=== PATIENT | female | born 1980 | race American Indian/Alaskan Native ===

== ENCOUNTER 2017-06-24 12:15 | Emergency (ER) | payer SELFPAY ==
[2017-06-24] MEDS ORDERED: PROVENTIL IH ONE (12:27)
[2017-06-24] MEDS ORDERED: ATROVENT IH ONE (12:27)
[2017-06-24 13:14] VITALS: BP 148/86
[2017-06-24 13:26] LABS: Basophils % (Auto) 0.3 % (0.0-1.8); Eosinophils % (Auto) 2.5 % (0.0-4.3); Hematocrit 41.2 % (30.3-42.9); Hemoglobin 13.4 gm/dl (10.1-14.3); Mean Corpuscular HGB Conc 33 % (30-34); Mean Corpuscular Hemoglobin 31 pg (28-32); Mean Corpuscular Volume 94 fl (79-97); Platelet Count 328 K/mm3 (140-440); Red Blood Count 4.38 M/mm3 (3.65-5.03); Red Cell Distribution Width 14.6 % (13.2-15.2); White Blood Count 14.4 K/mm3 (4.5-11.0)
--- NOTE | 2017-06-24 13:35 | XRay Report ---
AP CHEST :06/24/17 12:15:00 CLINICAL: Shortness of breath. COMPARISON:None. FINDINGS: Normal heart and pulmonary vasculature. The lungs are normally expanded and clear. Mild scoliosis. No tubes or lines. IMPRESSION: No acute cardiopulmonary process.
[2017-06-24] MEDS ORDERED: MAGNESIUM SULFATE 2GM/50ML 2 GM/50 ML BAG IV ONE (13:40)
[2017-06-24 13:42] LABS: Anion Gap 16 mmol/L; Blood Urea Nitrogen 11 mg/dL (7-17); Calcium 8.7 mg/dL (8.4-10.2); Carbon Dioxide 28 mmol/L (22-30); Glucose 143 mg/dL (65-100); Potassium 4.1 mmol/L (3.6-5.0); Sodium 142 mmol/L (137-145)
[2017-06-24] MEDS ORDERED: TORADOL IV ONE (13:54)
--- NOTE | 2017-06-24 14:00 | Emergency Department Report ---
HPI - General Chief Complaint: Dyspnea/Respdistress Time Seen by Provider: 06/24/17 13:36 - HPI HPI: Room 22 The patient is a 37-year-old female presenting with a chief complaint of asthma exacerbation/shortness of breath. The patient states this morning at 06:30 she developed shortness of breath consistent with her asthma which includes wheezing. Patient is an occasional cough that is nonproductive. Patient denies any history of fever. Patient complains of pain in her right back described as aching and sharp which she always has when she has an asthma exacerbation. The patient received nebs prior to my evaluation and currently states she is asymptomatic Location: Lungs Duration: Since since 06:30 Quality: Wheezing Severity: Moderate Modifying factors: [see above] Context: [see above] Mode of transportation: EMS ED Past Medical Hx - Past Medical History Previous Medical History?: Yes Hx Hypertension: Yes Hx Asthma: Yes - Surgical History Past Surgical History?: Yes Additional Surgical History: hysterectomy, tubal ligation, ankle surgery - Family History Family history: no significant - Social History Smoking Status: Current Every Day Smoker (8 cigarettes daily) Substance Use Type: None (denies illicit drug use), Alcohol (occasional) - Medications Home Medications: Home Medications Medication Instructions Recorded Confirmed Last Taken Type ALBUTEROL Inhaler [ProAir HFA 2 puff IH QID PRN #1 inhalation 06/24/17 Unknown Rx Inhaler] Ibuprofen [Motrin 800 MG tab] 800 mg PO Q8HR PRN #10 tablet 06/24/17 Unknown Rx Prednisone [predniSONE 10 mg 10 mg PO .TAPER #1 tab.ds.pk 06/24/17 Unknown Rx (6-Day Pack, 21 Tabs)] traMADol [Ultram] 50 mg PO Q6HR PRN #10 tablet 06/24/17 Unknown Rx ED Review of Systems ROS: Stated complaint: BEAN Other details as noted in HPI Comment: All other systems reviewed and negative Constitutional: denies: chills, fever Eyes: denies: eye pain, eye discharge, vision change ENT: denies: ear pain, throat pain Respiratory: denies: cough, shortness of breath, wheezing Cardiovascular: denies: chest pain, palpitations Endocrine: no symptoms reported Gastrointestinal: denies: abdominal pain, nausea, diarrhea Genitourinary: denies: urgency, dysuria, discharge Musculoskeletal: back pain Skin: denies: rash, lesions Neurological: denies: headache, weakness, paresthesias Psychiatric: denies: anxiety, depression Hematological/Lymphatic: denies: easy bleeding, easy bruising Physical Exam - Physical Exam Vital Signs: Vital Signs 06/24/17 06/24/17 06/24/17 12:28 12:30 12:33 Temperature 97.8 F Pulse Rate 115 H Pulse Rate [ 115 H Bilateral Upper Lobe] Respiratory 25 H 25 H Rate Respiratory 24 Rate [Bilateral Upper Lobe] Blood Pressure 147/97 Blood Pressure 149/111 [Left] O2 Sat by Pulse 95 95 Oximetry 06/24/17 06/24/17 06/24/17 12:39 12:46 13:00 Temperature Pulse Rate Pulse Rate [ Bilateral Upper Lobe] Respiratory 32 H 13 17 Rate Respiratory Rate [Bilateral Upper Lobe] Blood Pressure 139/92 148/86 Blood Pressure [Left] O2 Sat by Pulse 96 95 Oximetry 06/24/17 13:04 Temperature Pulse Rate Pulse Rate [ 120 H Bilateral Upper Lobe] Respiratory Rate Respiratory 22 Rate [Bilateral Upper Lobe] Blood Pressure Blood Pressure [Left] O2 Sat by Pulse Oximetry Physical Exam: GENERAL: The patient is well-developed well-nourished female sitting on stretcher not appearing to be in acute distress. [] HEENT: Normocephalic. Atraumatic. Extraocular motions are intact. Patient has moist mucous membranes. NECK: Supple. Trachea midline CHEST/LUNGS: Clear to auscultation. There is no respiratory distress noted. HEART/CARDIOVASCULAR: Regular. There is no tachycardia. There is no gallop rub or murmur. ABDOMEN: Abdomen is soft, nontender. Patient has normal bowel sounds. There is no abdominal distention. SKIN: There is no rash. There is no diaphoresis. NEURO: The patient is awake, alert, and oriented. The patient is cooperative. The patient has normal speech MUSCULOSKELETAL: There is no evidence of acute injury. ED Course Vital Signs 06/24/17 06/24/17 06/24/17 12:28 12:30 12:33 Temperature 97.8 F Pulse Rate 115 H Pulse Rate [ 115 H Bilateral Upper Lobe] Respiratory 25 H 25 H Rate Respiratory 24 Rate [Bilateral Upper Lobe] Blood Pressure 147/97 Blood Pressure 149/111 [Left] O2 Sat by Pulse 95 95 Oximetry 06/24/17 06/24/17 06/24/17 12:39 12:46 13:00 Temperature Pulse Rate Pulse Rate [ Bilateral Upper Lobe] Respiratory 32 H 13 17 Rate Respiratory Rate [Bilateral Upper Lobe] Blood Pressure 139/92 148/86 Blood Pressure [Left] O2 Sat by Pulse 96 95 Oximetry 06/24/17 13:04 Temperature Pulse Rate Pulse Rate [ 120 H Bilateral Upper Lobe] Respiratory Rate Respiratory 22 Rate [Bilateral Upper Lobe] Blood Pressure Blood Pressure [Left] O2 Sat by Pulse Oximetry ED Medical Decision Making - Lab Data Result diagrams: 06/24/17 Unknown 06/24/17 12:39 Laboratory Tests 06/24/17 06/24/17 12:39 Unknown WBC 14.4 H RBC 4.38 Hgb 13.4 Hct 41.2 MCV 94 MCH 31 MCHC 33 RDW 14.6 Plt Count 328 Lymph % (Auto) 24.9 Will % (Auto) 3.4 Eos % (Auto) 2.5 Baso % (Auto) 0.3 Lymph # 3.6 Will # 0.5 Eos # 0.4 Baso # 0.0 Seg Neutrophils % 68.9 Seg Neutrophils # 9.9 H Sodium 142 Potassium 4.1 Chloride 102.0 Carbon Dioxide 28 Anion Gap 16 BUN 11 Creatinine 0.5 L Estimated GFR > 60 BUN/Creatinine Ratio 22.00 Glucose 143 H Calcium 8.7 - Radiology Data Radiology results: image reviewed (chest x-ray) interpreted by me: Chest x-ray-no focal infiltrates, no pneumothorax - Differential Diagnosis acute asthma exacerbation, pneumonia, pneumothorax Critical care attestation.: If time is entered above; I have spent that time in minutes in the direct care of this critically ill patient, excluding procedure time. ED Disposition Clinical Impression: Acute asthma exacerbation, Shortness of breath Disposition: DC-01 TO HOME OR SELFCARE Is pt being admited?: No Does the pt Need Aspirin: No Condition: Stable Instructions: Asthma (ED) Additional Instructions: Return to the emergency department immediately should you develop worsening symptoms, fever, inability to tolerate food or liquid or any other concerns. Prescriptions: ALBUTEROL Inhaler [ProAir HFA Inhaler] 2 puff IH QID PRN #1 inhalation PRN Reason: Shortness Of Breath Ibuprofen [Motrin 800 MG tab] 800 mg PO Q8HR PRN #10 tablet PRN Reason: Pain Prednisone [predniSONE 10 mg (6-Day Pack, 21 Tabs)] 10 mg PO .TAPER #1 tab.ds.pk traMADol [Ultram] 50 mg PO Q6HR PRN #10 tablet PRN Reason: Pain Referrals: PEDRO WITT MD [Staff Physician] - 3-5 Days (Dr. Witt is a primary physician. Please follow up with him for further evaluation) ISMA MURPHY MD [Staff Physician] - 3-5 Days (Dr. Murphy is a retirement consultant. Please follow up with him for further evaluation) Time of Disposition: 14:02
== END 2017-06-24 14:26 | disposition home or self-care (01) ==
LOC: ED 12:15
DX: J45.901 Unspecified asthma with (acute) exacerbation (principal); I10 Essential (primary) hypertension; F17.200 Nicotine dependence, unspecified, uncomplicated
CPT/HCPCS: 36415; 71010; 80048; 85025; 94640; 96374; 96375; 99284; J1885; J2930